=== PATIENT | female | born 1940 | race Caucasian/White ===

== ENCOUNTER 2017-03-28 16:57 | Outpatient (CLI) | payer MEDICARE, OTHER ==
[2014-05-13 11:50] VITALS: BMI 28.0
[~2017-03-28 16:57] MED LIST: FISH OIL 1,0001 CA1 PO; VITAMIN D2000 UNIT PO
== END 2017-03-28 17:25 ==
LOC: D.MAMMO 16:57
DX: Z12.31 Encounter for screening mammogram for malignant neoplasm of breast (principal)

== ENCOUNTER → 2018-03-28 09:51 | Outpatient (CLI) | payer MEDICARE, OTHER ==
[2014-05-13 11:50] VITALS: BMI 28.0
== END | disposition home or self-care (01) ==
LOC: D.CT 09:51
DX: J20.9 Acute bronchitis, unspecified (principal)

== ENCOUNTER → 2018-11-28 09:10 | Outpatient (CLI) | payer MEDICARE, OTHER ==
[2014-05-13 11:50] VITALS: BMI 28.0
[2018-11-28 10:18] LABS: BASOPHILS 0.1 % (0-2); EOSINOPHILS 0.3 % (0-7); HEMATOCRIT 44.6 % (36.0-48.0); HEMOGLOBIN 14.9 g/dL (12-16); IMMATURE GRANULOCYTES 0.3 % (0-5); LYMPHOCYTES 16.7 % (15-50); MCH 32.4 pg (26.0-34.0); MCHC 33.4 g/dL (31.0-37.0); MEAN PLATELET VOLUME 11.8 fL (7.4-10.4); MONOCYTES 5.4 % (2-11); NEUTROPHILS 77.2 % (40-80)
[2018-11-28 10:19] LABS: PLATELET COUNT 183 10x3/uL (130-400)
[2018-11-29 08:22] LABS: IMMUNOGLOBULIN A 237 mg/dL (64-422)
[2018-12-01 16:50] LABS: IMMUNOGLOBULIN E 70 IU/mL (0-100)
[2018-12-04 22:07] LABS: IGG SUBCLASS 1 382 mg/dL (248-810); IGG SUBCLASS 2 240 mg/dL (130-555); IGG SUBCLASS 3 60 mg/dL (15-102); IGG SUBCLASS 4 41 mg/dL (2-96)
== END | disposition home or self-care (01) ==
LOC: D.LAB 08:00 → D.RT 10:00
PROVIDERS: Internal Medicine Pulmonary Disease
DX: J44.9 Chronic obstructive pulmonary disease, unspecified (principal)

== ENCOUNTER → 2018-11-29 14:47 | Outpatient (CLI) | payer MEDICARE, OTHER ==
[2014-05-13 11:50] VITALS: BMI 28.0
== END | disposition home or self-care (01) ==
LOC: D.CT 14:47
DX: I65.23 Occlusion and stenosis of bilateral carotid arteries (principal)

== ENCOUNTER → 2020-03-03 10:15 | Outpatient (CLI) | payer MEDICARE, OTHER ==
[2014-05-13 11:50] VITALS: BMI 28.0
== END | disposition home or self-care (01) ==
LOC: D.CT 12-24 09:45 → D.LAB 12-24 09:45 → D.CT 12-24 10:00 → D.LAB 10:15 → D.CT 11:30
PROVIDERS: ATTEND Internal Medicine Pulmonary Disease
DX: R91.8 Other nonspecific abnormal finding of lung field (principal)

== ENCOUNTER → 2020-12-23 08:51 | Outpatient (CLI) | payer MEDICARE, OTHER ==
[2014-05-13 11:50] VITALS: BMI 28.0
== END | disposition home or self-care (01) ==
LOC: D.CT 12-22 09:30
PROVIDERS: ATTEND Internal Medicine Pulmonary Disease
DX: R91.8 Other nonspecific abnormal finding of lung field (principal)

== ENCOUNTER 2021-02-02 14:45 | Outpatient (CLI) | payer MEDICARE, OTHER ==
[2014-05-13 11:50] VITALS: BMI 28.0
== END 2021-02-02 23:59 | disposition home or self-care (01) ==
LOC: D.MAMMO 14:45
PROVIDERS: ATTEND Family Medicine
DX: Z12.31 Encounter for screening mammogram for malignant neoplasm of breast (principal)

== ENCOUNTER 2021-02-14 15:00 | Outpatient (CLI) | payer MEDICARE, OTHER ==
[2014-05-13 11:50] VITALS: BMI 28.0
== END 2021-02-14 23:59 | disposition home or self-care (01) ==
LOC: D.MAMMO 15:00
PROVIDERS: ATTEND Family Medicine
DX: R92.8 Other abnormal and inconclusive findings on diagnostic imaging of breast (principal)